=== PATIENT | female | born 1995 | race Asian ===

== ENCOUNTER 2019-09-19 15:20 | Observation (INO) | payer MEDICAID ==
[~2019-09-19] VITALS: Ht 157.5 cm; Wt 63.5 kg
[2019-09-19 13:30] VITALS: BP 132/92
[2019-09-19] MEDS ORDERED: PREN-380 PO (15:33)
[2019-09-20] MEDS ORDERED: OXYTOCIN 10 UNITS/ML VIAL IM PRN (03:10)
[2019-09-20] MEDS ORDERED: METHYLERGONOVINE 0.2 MG TAB PO PRN (03:10)
[2019-09-20] MEDS ORDERED: BENZOCAINE/MENTHOL 20%-0.5% 60 GM CAN TP PRN (03:10)
[2019-09-20] MEDS ORDERED: MEASLES, MUMPS, AND RUBELLA 1 VIAL SQVAC PRN (03:10)
[2019-09-20] MEDS ORDERED: IBUPROFEN 800 MG TAB PO PRN (03:10)
[2019-09-20] MEDS ORDERED: METHYLERGONOVINE 0.2 MG/ML AMP IM PRN (03:10)
== END 2019-09-19 17:50 | disposition home or self-care (01) ==
LOC: MLD 15:20 → UNDODISOB 09-20 04:22
PROVIDERS: ADMIT Obstetrics & Gynecology; ATTEND Obstetrics & Gynecology
DX: O42.92 Full-term premature rupture of membranes, unspecified as to length of time between rupture and onset of labor (principal); O80 Encounter for full-term uncomplicated delivery; Z78.0 Asymptomatic menopausal state; Z3A.37 37 weeks gestation of pregnancy
CPT/HCPCS: 81000; G0378

== ENCOUNTER 2019-09-19 22:18 | Inpatient (IN) | payer MEDICAID ==
[~2019-09-19] VITALS: Ht 157.5 cm; Wt 63.5 kg
[~2019-09-19 22:18] MED LIST: PREN-380 PO
[2019-09-19] MEDS ORDERED: LACTATED RINGERS 1,000 ML IV SCH (22:46)
[2019-09-19] MEDS ORDERED: LACTATED RINGERS 500 ML IV ONE (22:50)
[2019-09-19] MEDS ORDERED: METHYLERGONOVINE 0.2 MG/ML AMP IM PRN (22:50)
[2019-09-19] MEDS ORDERED: CARBOPROST 250 MCG/ML AMP IM PRN (22:50)
[2019-09-19 23:14] LABS: BASOPHILS % (AUTO) 0.2 % (0.0-2.0); EOSINOPHILS % (AUTO) 0.3 % (0.0-4.0); HEMATOCRIT 39.7 % (36-48); HEMOGLOBIN 12.7 g/dL (12.0-16.0); LYMPHOCYTES # (AUTO) 1.8 K/uL (2.5-16.5); LYMPHOCYTES % (AUTO) 13.5 % (20.5-51.1); MEAN CORPUSCULAR HEMOGLOBIN 27 pg (27-31); MEAN CORPUSCULAR HGB CONC 32 g/dL (33-37); MEAN CORPUSCULAR VOLUME 83.4 fL (80-94); NEUTROPHILS # (AUTO) 10.8 K/uL (1.8-7.7); PLATELET COUNT (AUTO) 212 K/uL (140-450); RED BLOOD CELL COUNT(AUTO) 4.75 MIL/uL (4.20-5.40); RED CELL DISTRIBUTION WIDTH 14.7 % (11.6-13.7); WHITE BLOOD COUNT (AUTO) 13.7 K/uL (4.8-10.8)
[2019-09-19] MEDS ORDERED: fentaNYL 0.05 MG/ML VIAL ONE (23:18)
[2019-09-19] MEDS ORDERED: fentaNYL 0.05 MG/ML VIAL IVP PRN (23:25)
[2019-09-19 23:33] LABS: ALBUMIN 2.8 g/dL (3.4-5.0); ANION GAP 14.7 (8-16); CARBON DIOXIDE 22.1 mmol/L (21-32); CREATININE 0.8 mg/dL (0.6-1.3); POTASSIUM 3.8 mmol/L (3.5-5.1); PROTHROMBIN TIME 8.5 secs (10.8-13.4); TOTAL BILIRUBIN 0.2 mg/dL (0.0-1.0)
[2019-09-20] MEDS ORDERED: ROPIVACAINE 0.2%/NS PREMIX 100 ML EPI ONE (00:12)
[2019-09-20] MEDS ORDERED: CLINDAMYCIN 900 MG/6 ML VIAL IV ONE (01:01)
[2019-09-20] MEDS ORDERED: OXYTOCIN 20 UNITS/LR PREMIX 1,000 ML IV ONE (01:22)
[2019-09-20] MEDS ORDERED: BENZOCAINE/MENTHOL 20%-0.5% 60 GM CAN TP PRN (04:50)
[2019-09-20] MEDS ORDERED: METHYLERGONOVINE 0.2 MG TAB PO PRN (04:50)
[2019-09-20] MEDS ORDERED: MEASLES, MUMPS, AND RUBELLA 1 VIAL SQVAC PRN (04:50)
[2019-09-20] MEDS ORDERED: METHYLERGONOVINE 0.2 MG/ML AMP IM PRN (04:50)
[2019-09-20] MEDS ORDERED: OXYTOCIN 10 UNITS/ML VIAL IM PRN (04:50)
[2019-09-20] MEDS ORDERED: IBUPROFEN 600 MG TAB PO PRN (04:55)
[2019-09-20 05:03] LABS: BILIRUBIN,URINE NEGATIVE (NEGATIVE); BLOOD, URINE 3+ (NEGATIVE); COLOR,URINE YELLOW (YELLOW); LEUKOCYTE ESTERASE ,URINE NEGATIVE (NEGATIVE); NITRITE, URINE NEGATIVE (NEGATIVE); UGLUCOSE NEGATIVE (NEGATIVE)
[2019-09-20 05:29] LABS: BARBITURATE, URINE NEG. ng/ml (NEG <=200); BENZODIAZEPINE, URINE NEG. ng/mL (NEG <=200); CANNABINOID, URINE NEG. ng/mL (NEG <=50); COCAINE, URINE NEG. ng/mL (NEG <=300); OPIATE, URINE NEG. ng/mL (NEG <=2000); PHENCYCLIDINE SCREEN,URINE NEG. ng/mL (NEG <=25)
[2019-09-20 06:37] LABS: APPEARANCE,URINE SLIGHTLY CLOUDY (CLEAR)
[2019-09-20] MEDS ORDERED: CLINDAMYCIN 900 MG in DEXTROSE 5% 100 ML IV SCH ×2 (07:00→09:00)
[2019-09-20 08:03] LABS: HEMATOCRIT 39.7 % (36-48); HEMOGLOBIN 12.8 g/dL (12.0-16.0)
--- NOTE | 2019-09-20 08:12 | NUR ---
PATIENT HAS BEEN SCREENED AND CATEGORIZED LOW NUTRITION RISK. PATIENT WILL BE SEEN WITHIN 7 DAYS OF ADMISSION. 09/26/[address]
[2019-09-20] MEDS: IBUPROFEN 600 MG TAB PO PRN ×2 (10:20→18:40)
[2019-09-20] MEDS ORDERED: DOCUSATE SOD/SENNA 50/8.6 MG 1 TAB PO SCH (21:00)
[2019-09-21] MEDS: IBUPROFEN 600 MG TAB PO PRN ×3 (05:15→20:21)
[2019-09-21 09:13] LABS: HEPATITIS B SURFACE ANTIGEN Negative (Negative)
[2019-09-22] MEDS: IBUPROFEN 600 MG TAB PO PRN ×2 (03:34→12:13)
--- NOTE | 2019-09-22 06:54 | NUR ---
PATIENT HAS BEEN SCREENED AND CATEGORIZED LOW NUTRITION RISK. PATIENT WILL BE SEEN WITHIN 7 DAYS OF ADMISSION. 09/28/19 CAYETANO LOJA MS, RDN
== END 2019-09-22 13:30 | disposition home or self-care (01) | DRG 560 ==
LOC: MFCC 22:18
PROVIDERS: ADMIT Obstetrics & Gynecology; ATTEND Obstetrics & Gynecology
PROC: 10E0XZZ Delivery of Products of Conception, External Approach (ICD-10-PCS; principal; 2019-09-20)
PROC: 0KQM0ZZ Repair Perineum Muscle, Open Approach (ICD-10-PCS; 2019-09-20)
PROC: 00HU33Z Insertion of Infusion Device into Spinal Canal, Percutaneous Approach (ICD-10-PCS; 2019-09-20)
PROC: 3E0R3BZ Introduction of Anesthetic Agent into Spinal Canal, Percutaneous Approach (ICD-10-PCS; 2019-09-20)
DX: O16.4 Unspecified maternal hypertension, complicating childbirth (principal); O70.1 Second degree perineal laceration during delivery; Z37.0 Single live birth; Z3A.37 37 weeks gestation of pregnancy
CPT/HCPCS: 36415; 51702; 59409; 80053; 80305; 81001; 85018; 85025; 85379; 85384; 85610; 85730; 86592; 86762; 86886; 86900; 86901; 87086; 87340; 87653-90; J2590; J2795; J3010; J3490; J7060; J7120